=== PATIENT | female | born 1990 | race Caucasian/White ===

== ENCOUNTER 2020-12-15 10:21 | Emergency (ER) | payer MEDICARE, MEDICAID, SELFPAY ==
[2020-12-15 10:29] VITALS: BP 121/76; PULSE 82; RESP 16; TEMP 36.7; O2SAT 98; BMI 20.2
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
[2020-12-15 10:53] VITALS: RESP 16; TEMP 36.7; O2SAT 98
== END 2020-12-15 11:17 | disposition home or self-care (01) ==
LOC: ER 11:04
PROVIDERS: Emergency Provider Emergency Medicine
DX: Z13.9 Encounter for screening, unspecified (principal); R41.3 Other amnesia
CPT/HCPCS: 99281

== ENCOUNTER 2023-01-07 00:58 | Inpatient (IN) | payer MEDICARE, MEDICAID, SELFPAY ==
[2023-01-07 01:00] VITALS: BP 130/62; PULSE 83; RESP 16; TEMP 37; O2SAT 100; BMI 19.1
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
[2023-01-07 01:29] LABS: HCG Qualitative Urine. Negative (Negative)
[2023-01-07 01:30] LABS: Basophils # 0.1 10^3/uL (0.0-0.1); Basophils % 0.5 %; Eosinophils # 0.2 10^3/uL (0.0-0.8); Eosinophils % 1.7 %; Hematocrit 42.1 % (37.0-47.0); Lymphocytes # 2.8 10^3/uL (0.8-4.8); Lymphocytes % 25.7 %; Mean Corpuscular HGB Conc 33.3 g/dL (30.0-36.0); Mean Corpuscular Hemoglobin 31.2 pg (28.0-34.0); Mean Corpuscular Volume 93.8 fl (81-99); Mean Platelet Volume 9.7 fL (7.4-10.4); Monocytes # 0.7 10^3/uL (0.2-0.9); Monocytes % 6.3 %; Neutrophils # 7.15 10^3/uL (1.8-7.7); Neutrophils % 65.5 %; Nucleated Red Blood Cells % 0 %; Platelet Count 289 10^3/cmm (130-400); Red Blood Count 4.49 10^6/uL (4.1-5.3); White Blood Count 10.9 10^3/uL (4.0-10.0)
[2023-01-07 01:45] LABS: Add Urine Microscopic? YES; Bacteria Urine 1+ /hpf; Bilirubin Urine Neg (Negative); Blood Urine Neg (Negative); Glucose Urine UA Norm (Normal); Ketones Urine Negative (Negative); Leukocyte Esterase Urine Negative (Negative); Mucus Urine 3+ /hpf; Nitrate Urine Negative (Negative); Protein Urine Neg (Negative); Specific Gravity, Urine 1.025 (1.005-1.030); Urine Appearance Hazy (CLEAR); Urine Color Yellow (Yellow); Urobilinogen Urine Neg (Negative); pH Urine 5 (5-7)
[2023-01-07 01:46] LABS: Amphetamines Screen Urine Positive (Negative); Barbiturates Screen Urine Negative (Negative); Benzodiazepines Screen Urine Negative (Negative); Cocaine Screen Urine Negative (Negative); Opiate Screen Urine Negative (Negative); PCP Screen Urine Negative (Negative); THC Screen Urine Positive (Negative)
[2023-01-07 01:58] LABS: Alanine Aminotransferase 14 U/L (0-33); Albumin Level 4.1 g/dL (3.5-5.2); Alkaline Phosphatase 74 U/L (35-105); Anion Gap 11.8 (5-19); Aspartate Amino Transferase 11 U/L (0-32); Blood Urea Nitrogen 10 mg/dL (6-20); Calcium 9.7 mg/dL (8.5-10.5); Carbon Dioxide 29 mmol/L (22-29); Chloride 101 mmol/L (98-107); Globulin 2.5 g/dL (1.3-4.6); Glomerular Filtration Rate 95.8 mL/min (90-130); Glucose 83 mg/dL (65-115); Osmolality Calculated 284 mOsm/kg (285-295); Potassium 3.8 mmol/L (3.5-5.1); Sodium 138 mmol/L (136-145); Thyroid Stimulating Hormone 2.35 uIU/mL (0.27-4.20); Total Bilirubin 0.3 mg/dL (0.15-1.2); Total Protein 6.6 g/dL (6.6-8.7)
[2023-01-07 01:59] LABS: Acetaminophen < 5.0 ug/mL (10-30); Alcohol Level < 10 mg/dL (0-10); Salicylate < 0.3 mg/dL (3-10)
[2023-01-07 02:39] VITALS: BP 114/69; PULSE 92; RESP 18; TEMP 36.6; O2SAT 98
--- NOTE | 2023-01-07 03:57 | PC.NURSE ---
Pt arrived to [facility] @ approximately 0238 w/RN and security at side, pt is disheveled in appearance. Pt denies plan for SI, but states consistant depression. Pt's admission completed then pt shown to her room. Shortly thereafter the patient began being belligerent w/roommate. Pt moved to other campo d/t inability to get along with roommate.
[2023-01-07] MEDS: LORazepam 2 mg Tablet PO (04:37)
[2023-01-07] MEDS: diphenhydrAMINE 50 mg Capsule PO (04:37)
[2023-01-07] MEDS: nicotine 4 mg lozenge MUCOUS MEM (04:37)
[2023-01-07] MEDS: haloperidol 5 mg Tablet PO (04:37)
[2023-01-07 06:00] VITALS: RESP 14
--- NOTE | 2023-01-07 09:09 | PC.OT ---
HOLD OT EVALUATION TODAY PER NURSING SECONDARY TO AGITATION
[2023-01-07 14:00] VITALS: BP 104/63; PULSE 80; RESP 16; TEMP 36.4; O2SAT 98
[2023-01-07 14:22] LABS: HIV 1 & 2 Antibody Non-Reactive (Non-Reactiv); HIV 1 & 2 Antigen Non-Reactive (Non-Reactiv)
[2023-01-07 15:26] LABS: Rapid Plasma Reagin Syphilis Nonreactive (Nonreactive)
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
--- NOTE | 2023-01-07 23:44 | PC.NURSE ---
At around 2330, Pt got up from bed and asked staff to take a shower, after Pt was given her shower box, she then went to the bathroom and came back yelling where the fuck do I set this box. staff informed pt that she could set it on the counter / side of sink. Pt continued yelling What fucking counter, where am I suppose to set this Staff told Pt that she needed to stop yelling as to not wake other patients. Pt stomped back to the bathroom and slammed the door shut.
--- NOTE | 2023-01-08 06:13 | PC.NURSE ---
Addendum entered by Vicki Montero LPN 01/08/23 06:16: Pts respirations is 18. Original Note: Pt refused 0600 vitals.
--- NOTE | 2023-01-08 09:29 | PC.OT ---
OT TREATMENT ATTEMPTED AGAIN TODAY; PATIENT IS SLEEPING SOUNDLY AND UNABLE TO BE AWAKENED.
[2023-01-08] MEDS: buPROPion XL (24 HR) 150 mg Tablet PO (09:34)
[2023-01-08] MEDS: nicotine 21 mg Patch 1 PATCH TRANSDERMA (09:34)
[2023-01-08] MEDS: acetaminophen 325 mg Tablet 650 MG PO (09:35)
[2023-01-08] MEDS: magnesium hydroxide 30 mL UDC PO ×2 (11:59→20:01)
[2023-01-08 14:00] VITALS: RESP 16
[2023-01-08 14:05] LABS: RPR w(Moniotor) w/REFL Titer NON-REACTIVE (NON-REACTIVE)
--- NOTE | 2023-01-08 18:05 | P.NPUPN_ITS ---
Subjective NPU Subjective: Patient presented today reporting that she had a bad time with the geriatric social worker and that we had done all we can do to help her and wondering about discharging AGAINST MEDICAL ADVICE. We discussed her having for delayed gratification and the need for her to take a step back and look at the possible good that she come from her stay. She continues to be all over the place both emotionally and formalized. We discussed the possibility of a 96-hour hold. We agreed to meet again in the morning and discuss her discharge plan Mental Status Exam MSE Comments: This is a slender, underweight, white female, in hospital scrubs, with limited grooming and eye contact. No abnormal movements, except for psychomotor retardation intermixed with psychomotor agitation. Cooperative with exam in mild to moderate distress. Speech was decreased rate and volume. Mood described as flat; affect subdued and tearful. Thought process, organized. Thought content: patient denied any suicidal or homicidal ideation, there were no delusions reported or noted, patient denied any auditory or visual hallucinations. Attention, concentration, and memory appeared intact, but none were formally tested. Alert and oriented times three. Insight and judgment are fair. Impulse control is limited. Vitals/I&O/Wt Last Vital Signs Temp 97.9 F 01/08/23 20:25 Pulse 116 H 01/08/23 20:25 Resp 18 01/08/23 20:25 BP 110/77 01/08/23 20:25 Pulse Ox 98 01/08/23 20:25 O2 Del Method Room Air 01/08/23 20:25 Data NPU 01/07/23 01:25 01/07/23 01:25 A&P Assessment and plan (1) Suicidal ideation: (2) MDD (major depressive disorder): Qualifiers: Active/Remission status: currently active Major depression episode severity: moderate Major depression recurrence: recurrent Qualified Code(s): F33.1 - Major depressive disorder, recurrent, moderate (3) Borderline personality disorder: (4) Methamphetamine use disorder, severe: Plan This is a 32-year-old, white female, who presents with some history of psychiatric hospitalizations but limited follow-up treatment, with a willingness to start medication to help with depression. 1. Started Wellbutrin XL 150 mg p.o. every morning. 2. Check labs and get consult. 3. Encourage individual, group, and milieu therapy. 4. Continue q-15-minute checks for safety. 5. Recommend sober living treatment at the highest level of care to which the patient is willing to commit. Involuntary Hold Information 96 Hour Hold: 96 Hour Involuntary Admission: No Attestations NPU Medical Necessity Statement*: Inpatient hospitalization is medically necessary and the clinically appropriate intervention, at this time. We will monitor medications and make changes as indicated. Likely length of stay is 2-4 days. Coding Level of Care Code Acute Code for [employer] Fwd Diagnoses Suicidal ideation R45.851 MDD (major depressive disorder) F33.1 Active/Remission status: currently active Major depression episode severity: moderate Major depression recurrence: recurrent Borderline personality disorder F60.3 Methamphetamine use disorder, severe F15.20
[2023-01-08] MEDS: ibuprofen 600 mg Tablet PO (19:38)
[2023-01-08 20:25] VITALS: BP 110/77; PULSE 116; RESP 18; TEMP 36.6; O2SAT 98
[2023-01-09 06:00] VITALS: BP 105/69; PULSE 85; RESP 18; TEMP 36.6; O2SAT 97
[2023-01-09] MEDS: ibuprofen 600 mg Tablet PO (07:52)
[2023-01-09] MEDS: buPROPion XL (24 HR) 150 mg Tablet PO (07:52)
[2023-01-09] MEDS: nicotine 21 mg Patch 1 PATCH TRANSDERMA ×2 (07:52→15:24)
[2023-01-09] MEDS: diphenhydrAMINE 50 mg/mL SDV 1mL IM (09:08)
[2023-01-09] MEDS: haloperidol inj 5 mg/mL INJ 1 mL IM (09:08)
[2023-01-09] MEDS: LORazepam 2 mg/mL INJ 1 mL IM (09:08)
--- NOTE | 2023-01-09 09:36 | PC.NURSE ---
0908 Administered IM B52 for pt yelling and screaming unable to have a rationale conversation with nursing staff or security. 50mg IM Benadryl right deltoid 2mg IM Ativan left deltoid 5mg IM Haldol left deltoid No distress noted
--- NOTE | 2023-01-09 09:40 | PC.NURSE ---
0833 Pt at nurses station requesting a pan operator # for Tk Easley. Pt began to elevate her voice at staff, staff wasn't fast enough in writing down the phone #. Staff instructed pt to dial the social workers ext, pt reached through the glass and grabbed a metal pen and stormed off down the campo screaming and yelling Cunt's . This nurse walked down to the dayroom and before I could speak, the patient threw the pen across the room and yelled there's your pen, now go pick it up like a dog . Pt continues to yell and scream, this nurse didn't even speak, just walked back down the campo.
--- NOTE | 2023-01-09 09:41 | PC.NURSE ---
Reviewed 96hr rights with patient in the accompany of [facility] [employer] Operating Engineer Karl, @1934. No questions were verbalized at this time by patient. Copy of 96hr patient rights was left at bedside with the patient.
--- NOTE | 2023-01-09 11:45 | PC.NURSE ---
pt came to window yelling that she wanted to leave, explain to patient that when Dr. rCews made his round she could speak to him about being discharge. pt was told by another staff member that she believed she was on a 96 hour hold and she would have to speak with the Doctor. pt continued to yell that she was voluntary and that she wanted to sign her self out and she wanted to see the paperwork that stated she was on a hold. I explained to patient that she indeed is on a voluntary stay and that the other staff member was incorrect that the only paperwork we had was her consent paperwork for treatment. pt started hitting the windows at the nurses station repeatedly an yelling that she wanted to leave and wanted someone to calm her down since I was the reason for her being upset, that I kept changing my story and that staff was making her mad by lying to her. I attempted to de escalate patient by asking patient what i could do to help her, pt stated her russian language instructor couldn't call her because she didn't have a phone and didn't have a home, I let patient know that our case management would be able to help her with that. pt continued to hit the window and yelling she wanted to leave. Angela Sheth spoke with LISETH Maradiaga to come over and speak with patient. Liseth Maradiaga walked over to [facility] nurses station to attempted to speak with patient pt turned to walk to phone and beat phone receive against phone and wall, at time supervisor instrument mechanics came onto unit an started to walk down the hallway towards nurses station. supervisor instrument mechanics called security then came to nurses station to speak with patient in attempt to de escalate situation. pt stated that no one was trying to calm her down an that it was our fault she was mad and angry, why wouldn't anyone talk to her an try to calm her down ,noone would do anything for her. security arrived doctor Mars notified of pt situation. pt informed by housekeeper child care that she will be placed on a 96 hour hold. at that time pt started yelling that it was our plan to make her mad so she would have to stay here and that it was staff fault and we were out to get since she called me a cow. pt escorted to her room by security and nurses staff. pt consented to IM administration of Benadryl 50mg, Haldol 5mg and lorazepam 2mg in bilateral deltoids.
--- NOTE | 2023-01-09 13:03 | P.NPUPN_ITS ---
Subjective NPU Subjective: Patient presents today difficult to arouse from medications this morning. We discussed the fact her losing her temper and breaking the phone was not an indication of her being safe for discharge. She was not having significant engagement secondary to lethargy. Mental Status Exam MSE Comments: This is a slender, underweight, white female, in hospital scrubs, with limited grooming and little to no eye contact. No abnormal movements, except for psychomotor retardation as she was lying in bed with limited arousability. She was minimally cooperative with exam in no acute distress. Speech was decreased rate and volume. Mood described not described. Her affect was subdued. Thought process: nonlinear, Thought content: patient denied any suicidal or homicidal ideation, there were no delusions reported or noted, she is not attending to internal stimuli. Attention, concentration, and memory were impaired secondary to lethargy, but none were formally tested. Alert and oriented to person. Insight and judgment are poor. Impulse control is limited. Vitals/I&O/Wt Last Vital Signs Temp 97.9 F 01/09/23 06:00 Pulse 85 01/09/23 06:00 Resp 18 01/09/23 06:00 BP 105/69 01/09/23 06:00 Pulse Ox 97 01/09/23 06:00 O2 Del Method Room Air 01/09/23 06:00 Data NPU 01/07/23 01:25 01/07/23 01:25 A&P Assessment and plan (1) Suicidal ideation: (2) MDD (major depressive disorder): Qualifiers: Active/Remission status: currently active Major depression episode severity: moderate Major depression recurrence: recurrent Qualified Code(s): F33.1 - Major depressive disorder, recurrent, moderate (3) Borderline personality disorder: (4) Methamphetamine use disorder, severe: Plan This is a 32-year-old, white female, who presents with some history of psychia tric hospitalizations but limited follow-up treatment, with a willingness to start medication to help with depression. 1. Started Wellbutrin XL 150 mg p.o. every morning. 2. Check labs and get consult. 3. Encourage individual, group, and milieu therapy. 4. Continue q-15-minute checks for safety. 5. Recommend sober living treatment at the highest level of care to which the patient is willing to commit. 6. 96 hour hold paperwork submitted Involuntary Hold Information 96 Hour Hold: 96 Hour Involuntary Admission: No Attestations NPU Medical Necessity Statement*: Inpatient hospitalization is medically necessary and the clinically appropriate intervention, at this time. We will monitor medications and make changes as indicated. Likely length of stay is 2-4 days. Coding Level of Care Code Acute Code for [facility] Fwd Diagnoses Suicidal ideation R45.851 MDD (major depressive disorder) F33.1 Active/Remission status: currently active Major depression episode severity: moderate Major depression recurrence: recurrent Borderline personality disorder F60.3 Methamphetamine use disorder, severe F15.20
[2023-01-09 14:00] VITALS: RESP 16
[2023-01-09 20:42] VITALS: RESP 16
[2023-01-10 06:00] VITALS: RESP 16
--- NOTE | 2023-01-10 06:05 | PC.NURSE ---
Attempted to wake pt up for vitals, Pt did not wake up. Pts respirations are 16.
[2023-01-10] MEDS: ibuprofen 600 mg Tablet PO (07:40)
[2023-01-10] MEDS: buPROPion XL (24 HR) 150 mg Tablet PO (08:07)
[2023-01-10] MEDS: nicotine 21 mg Patch 1 PATCH TRANSDERMA (08:08)
[2023-01-10] MEDS: haloperidol inj 5 mg/mL INJ 1 mL IM (08:13)
[2023-01-10] MEDS: diphenhydrAMINE 50 mg/mL SDV 1mL IM (08:13)
[2023-01-10] MEDS: LORazepam 2 mg/mL INJ 1 mL IM (08:13)
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
[2023-01-10 14:00] VITALS: BP 115/78; PULSE 93; RESP 16; O2SAT 98
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
[2023-01-10 19:50] VITALS: BP 102/67; PULSE 98; RESP 16; TEMP 36.8; O2SAT 98
[2023-01-11 06:00] VITALS: RESP 16
[2023-01-11] MEDS: ibuprofen 600 mg Tablet PO (06:50)
[2023-01-11] MEDS: LORazepam 2 mg/mL INJ 1 mL IM (07:47)
[2023-01-11] MEDS: diphenhydrAMINE 50 mg/mL SDV 1mL IM (07:47)
[2023-01-11] MEDS: haloperidol inj 5 mg/mL INJ 1 mL IM (07:47)
--- NOTE | 2023-01-11 07:47 | PC.NURSE ---
PRN BENADRYL/HALDOL/ATIVAN---CODE 10 BENADRYL 50 MG GIVEN IM IN LEFT DELTOID, ATIVAN 2 MG GIVEN IM WITH HALDOL 5 MG GIVEN IM PER PATIENT BEHAVIOR OF INCREASED AGITATION/AGGRESSION/ANXIETY. PATIENT CAME TO THE DESK, ASKING STAFF FOR NICOTINE PATCH, STAFF OFFERED TO GO GET IT, BEFORE STAFF COULD LEAVE TO RETRIEVE PATCH PATIENT BEGAN QUESTIONING STAFF ABOUT HER 96 HOUR HOLD, AND HER CONCERN ABOUT HER ANIMALS LEFT AT HER HOME. THIS STAFF OFFERED TO CALL TO CHECK ON HER ANIMALS, STAFF EDUCATED PATIENT THAT HER BEHAVIOR NEEDED TO BE STABLE BEFORE SHE WOULD BE ALLOWED TO BE DISCHARGED, PATIENT BECAME IRATE AT THIS POINT, YELLING AT THIS STAFF MEMBER THAT I WAS THREATENING TO KEEP HER HERE FOREVER THIS STAFF ATTEMPTS TO VERBALLY DEESCALATE PATIENT, NO SUCCESS. STAFF ASKED PATIENT TO STOP YELLING, PATIENT SCREAMING AT STAFF I'M NOT YELLING! STAFF ATTEMPTED TO CALL SECURITY, THEN PATIENT REACHED INTO DESK KNOCKED OVER THE COMPUTER, ATTEMPTED TO GRAB AT OTHER THINGS IN THE NURSES STATION. THIS STAFF MEMBER GRABBED PATIENT WRIST IN ATTEMPT TO KEEP HER FROM GRABBING OTHER ITEMS AT THE DESK, CODE 10 ALSO CALLED AT THIS TIME, SEVERAL ER STAFF, 2 SECURITY AND HEALTH INSURANCE ASSESSOR RESPONDED TO CODE CALLED. PATIENT TOOK INJECTIONS WILLINGLY, LAUGHING SHE RECEIVED THE INJECTIONS SAYING MAYBE I'LL START USING MY METH LIKE THIS SINCE I KEEP GETTING STUCK IN THE ARMS STAFF WILL CONT TO MONITOR
--- NOTE | 2023-01-11 08:07 | PC.NURSE ---
LIMITED ASSESSMENT R/T BEHAVIOR
[2023-01-11] MEDS: buPROPion XL (24 HR) 150 mg Tablet PO (12:27)
[2023-01-11] MEDS: hyDROXYzine 25 mg Capsule 50 MG PO (12:27)
--- NOTE | 2023-01-11 12:33 | PC.NURSE ---
PRN VISTARIL 50 MG GIVEN PO PER PT REQUEST OF MORE MEDS PATIENT HAS BEEN PREVIOUSLY ASLEEP IN BED IN ROOM, NO OUTWARD S/S OF ANXIETY NOTED BUT PATIENT HAS SHOWN PAST BEHAVIORS OF INCREASED AGITATION/AGGRESSION EASILY IF HER REQUESTS AREN'T ANSWERED. SCHEDULED WELLBUTRIN ALSO GIVEN AT THIS TIME THAT PATIENT PREVIOUSLY REFUSED FROM THIS MORNING
[2023-01-11 14:00] VITALS: BP 100/64; PULSE 78; RESP 16; TEMP 36.6; O2SAT 97
--- NOTE | 2023-01-11 15:29 | P.NPUPN_ITS ---
Subjective NPU Subjective: The patient is a 32-year-old white female with a history of borderline personality disorder, major depressive disorder and methamphetamine use admitted with suicidal ideation with increased agitation. The patient appeared to have limited interactions. She had awakened to receive food and then promptly went back to sleep. She continued to provide no clear information regarding why she had been admitted to the hospital. She had received Haldol for acute aggression this morning intramuscularly as she had refused oral medications. Mental Status Exam MSE Comments: This is a slender, underweight, white female, in hospital scrubs, with limited grooming and eye contact. No abnormal movements, except for psychomotor retardation as she was lying in bed and difficult to arouse. She was minimally cooperative with exam in no acute distress. Speech was nonproductive. She did not describe her mood today. Her affect was subdued and mood odd. Thought process: nonlinear, Thought content: patient denied any suicidal or homicidal ideation, there were no delusions reported or noted, patient denied any auditory or visual hallucinations. She remained paranoid and agitated when awakened. Att ention, concentration, and memory appeared intact, but none were formally tested. Alert and oriented times three. Insight and judgment are poor. Impulse control is impaired. Vitals/I&O/Wt Last Vital Signs Temp 97.8 F 01/11/23 14:00 Pulse 78 01/11/23 14:00 Resp 16 01/11/23 14:00 BP 100/64 01/11/23 14:00 Pulse Ox 97 01/11/23 14:00 O2 Del Method Room Air 01/09/23 06:00 Data NPU 01/07/23 01:25 01/07/23 01:25 A&P Assessment and plan (1) Suicidal ideation: (2) MDD (major depressive disorder): Qualifiers: Active/Remission status: currently active Major depression episode severity: moderate Major depression recurrence: recurrent Qualified Code(s): F33.1 - Major depressive disorder, recurrent, moderate (3) Borderline personality disorder: (4) Methamphetamine use disorder, severe: Plan This is a 32-year-old, white female, who presents with some history of psychiatric hospitalizations but limited follow-up treatment, with a willingness to start medication to help with depression. 1. Continue Wellbutrin XL 150 mg p.o. every morning. 2. Check labs and get consult. 3. Encourage individual, group, and milieu therapy. 4. Continue q-15-minute checks for safety. 5. Recommend sober living treatment at the highest level of care to which the patient is willing to commit. 6. Patient to remain on 96 hour hold. Involuntary Hold Information 96 Hour Hold: 96 Hour Involuntary Admission: No Attestations NPU Medical Necessity Statement*: Inpatient hospitalization is medically necessary and the clinically appropriate intervention, at this time. We will monitor medications and make changes as indicated. Her likely length of stay is 2-4 days. Coding Level of Care Code Acute Code for g Fwd Diagnoses Suicidal ideation R45.851 MDD (major depressive disorder) F33.1 Active/Remission status: currently active Major depression episode severity: moderate Major depression recurrence: recurrent Borderline personality disorder F60.3 Methamphetamine use disorder, severe F15.20
[2023-01-11] MEDS: haloperidol 5 mg Tablet PO (18:32)
[2023-01-11] MEDS: diphenhydrAMINE 50 mg Capsule PO (18:32)
[2023-01-11] MEDS: magnesium hydroxide 30 mL UDC PO (18:35)
--- NOTE | 2023-01-11 18:37 | PC.NURSE ---
Patient tearful and trembling, requesting medication. Administered 5mg Haldol, 50mg Benadryl to patient. Ativan 2mg still pending at pharmacy. Mode: by mouth. When asked if patient wanted to talk about it, patient started to get agitated.
--- NOTE | 2023-01-11 18:38 | PC.NURSE ---
patient unsure of last BM. Administered Milk of Mag to patient. will continue to monitor
[2023-01-11] MEDS: LORazepam 2 mg Tablet PO (18:50)
[2023-01-11 21:31] VITALS: RESP 17
[2023-01-12] MEDS: buPROPion XL (24 HR) 150 mg Tablet PO (08:43)
--- NOTE | 2023-01-12 08:49 | PC.NURSE ---
pt up at desk requesting morning medication, and a inkpen when asked if she would like something for anxiety pt stated yes. when administering her wellbutrin also gave pt zyprexia, informed pt of anxiety med pt picked out med and threw it at staff, stating i told you i didnt want that medicaition attempts to descalte pt by going over what was said between staff and patient on anxiety medication and pt agreeing to take it pt started yelling sayin i told you I didnt want that medication pt then called staff lisa mariet walked away came back to nurses station yelling for ink pen you fucking bitch, when told she was unable to recieve ink pen pt threw creamer, sugars, creamers and threw coffee at staff members. pt then walked away to dayroom and sat at table.
[2023-01-12] MEDS: diphenhydrAMINE 50 mg Capsule PO (09:13)
[2023-01-12] MEDS: haloperidol 5 mg Tablet PO (09:13)
[2023-01-12] MEDS: LORazepam 2 mg Tablet PO (09:13)
--- NOTE | 2023-01-12 10:02 | PC.NURSE ---
One Hour Face to Face Patient was placed in a hold at 0924 and was in seclusion at 0927. Face to face completed at 1000 by Nicolasa Peacock, RN Nurse [employer] Washer. Events leading up to initiation: Verbalizing threat to self or others, demonstrating destructive behavior, combative/striking out at staff or others Evaluation of patients immediate situation: Alert and oriented, no signs of physical distress Patient reaction since intervention applied: Behaviors/threats have lessened, but still present. Recent labs reviewed: No Review of medications: Yes (by Dr. Bauer) Patient's current medical/behavior condition: No new concerns since last ROS Need for restraint or seclusion is: Continued Attending notified: Yes
[2023-01-12] MEDS: acetaminophen 325 mg Tablet 650 MG PO (12:45)
[2023-01-12] MEDS: nicotine 21 mg Patch 1 PATCH TRANSDERMA (12:45)
--- NOTE | 2023-01-12 13:51 | PC.NURSE ---
PT WAS BECOMING ESCALATED AND YELLING AT OTHER NURSE MEGAN CAPELLAN. PT WAS UNABLE TO BE REDIRECTED. PT GRABBED THE SNACK BOX AND THREW IT ACROSS THE NURSES STATION. THIS NURSE WENT TO ASSIST IN THE SITUATION. THIS NURSE STATED YOU CANNOT THROW ANYTHING ACROSS THE NURSES STATION. PT CONTINUED TO YELL AT OTHER NURSE. PT BEGAN SCREAMING CAN YOU GIVE ME A FUCKING PEN THEN. GIVE ME THE FUCKING PEN. CAN I FUCKING HAVE A PEN. THIS NURSE INFORMED THE PT THAT SHE WILL NOT CURRENTLY BE GIVEN A PEN TO WHICH THE PT RESPONDED WITH STICKING HER CUP OF COFFEE THROUGH THE NURSES STATION WINDOW AND THROWING ON THIS NURSE. SECURITY HAD BEEN CALLED AND PREMIX OPERATOR CONCENTRATE WAS ALREADY ON HER WAY DOWN. PHYSICIAN WAS INFORMED AND STATED THAT HE WANTED A B52 TO BE GIVE. MEDICATION WAS OFFERED ORALLY PT WAS WILLING TO TAKE MEDICATION ORALLY. PT SWALLOWED BENADRYL AND ATIVAN HOWEVER, PT DID NOT FULLY SWALLOW THE HALDOL. PT ASKED IF SHE COULD MAKE A PHONE CALL BEFORE THE MEDICATION KICKED IN AND WAS TOLD THAT SHE HAS TO SWALLOW HER MEDICATION. PT RESPONDED BY TAKING HALDOL OUT OF HER MOUTH AND HOLDING IT REPEATEDLY ASKING IF SHE CAN MAKE A PHONE CALL. PREMIX OPERATOR CONCENTRATE ATTEMPTED TO EDUCATE THE PT TO IF SHE TAKES HER MEDICATION AND CALMS DOWN THAT THE NURSING STAFF WILL MAKE THAT DECISION. PT STATED THEN LET ME TALK TO THE NURSE. THIS NURSE STATED THAT I AM THE NURSE AND PT RESPONDED WITH WELL WHY ARENT YOU SAYING ANYTHING THEN. THIS NURSE EDUCATED PT THAT I WILL NOT TALK OVER HER WHEN SHE IS HAVING A CONVERSATION WITH SOMEONE ELSE. THIS NURSE EDUCATED PT STATING IF SHE TOOK HER MEDICATION AND WAS CALM FOR 10 MINUTES I WOULD BE MORE THAN WILLING TO LET HER HAVE THE PRIVILEGE OF HAVING HER PHONE CALL. PT THE STATED I BET I CAN SNORT THIS. PT WAS ASKED NOT TO DO THAT AND THIS NURSE WENT TO TAKE THE MEDICATION FROMT HE PT BUT BEFORE THAT COULD HAPPEN PT HAD ALREADY SHOVED THE 5 MG HALDOL UP HER NOSE AND STATED THAT WAS GOOD WHAT WAS THAT THE HALDOL? TO WHICH THIS NURSE RESPONDED WITH IM NOT GOING TO ANSWER THAT. PHYSCIAN WAS NOTIFIED AND ORDERED TO GIVE THE HALDOL SHOT PT WILLINGLY TOOK.
[2023-01-12 14:00] VITALS: BP 116/74; PULSE 85; RESP 16; TEMP 36.4; O2SAT 98
[2023-01-12] MEDS: diphenhydrAMINE 50 mg/mL SDV 1mL IM (18:10)
[2023-01-12] MEDS: LORazepam 2 mg/mL INJ 1 mL IM (18:11)
[2023-01-12] MEDS: haloperidol inj 5 mg/mL INJ 1 mL IM (18:12)
--- NOTE | 2023-01-12 18:25 | PC.NURSE ---
prn ATIVAN/HALDOL/BENADRYL--CODE 10 PT UP TO DESK, YELLING/CURSING, VERBALLY ASSAULTIVE WITH NURSING STAFF, CALLING NURSES BITCHES STUPID FUCKING BITCHES ASKING FOR MEDICATIONS TO CALM HER DOWN. WHEN STAFF OFFERED PRN MEDICINE PATIENT BECOMES IRATE STATING THAT THAT'S ALL WE KNOW HOW TO DO IS GIVE MEDICATIONS CONSERVATION EDUCATOR ATTEMPTING TO DE-ESCALATE PATIENT & REDIRECT BEHAVIOR, UNSUCCESSFUL. SECURITY CALLED. PATIENT CONT TO YELL & STAFF, SAYING YOU STUPID FUCKING BITCH THEN STARTED KICKING GLASS WITH HER FOOT SEVERAL TIMES BY NURSES STATION. CODE [address] AT THIS TIME[address] ALCAZAR ON UNIT, DID NOT SPEAK WITH PATIENT BUT TOLD NURSING STAFF SHE COULD GET PRN INJECTIONS. PT TOOK INJECTIONS IN ARMS, BENADRYL 50 MG GIVEN IM IN LEFT DELTOID, ATIVAN 2 MG GIVEN WITH HALDOL 5 MG IM IN RIGHT DELTOID.
--- NOTE | 2023-01-12 18:34 | W.PM.NPUPNS ---
Subjective NPU Subjective: The patient is a 32-year-old white female with a history of borderline personality disorder, major depressive disorder and methamphetamine use admitted with suicidal ideation with increased agitation. The patient had required seclusion today and required 2 different prn medications as needed intramuscular Haldol 5mg given for agitation. She had continued to appear labile while making threats to staff. She had snorted intranasal Haldol 5 mg when given the opportunity to take it orally today. She had continued to spend time either aggressive and yelling at the staff engaging in attempts to destroy property or lying in bed. Mental Status Exam MSE Comments: This is a slender, underweight, white female, in hospital scrubs, with limited grooming and eye contact. No abnormal movements, except for extreme psychomotor agitation follwed by psychomotor retardation. She was minimally cooperative with exam in no acute distress. Speech was loud and productive with elevated rate. She described her mood as angry. Her affect was intense and agitated. Thought process: nonlinear, Thought content: patient denied any suicidal or homicidal ideation, there were no delusions reported or noted, patient denied any auditory or visual hallucinations. She remained paranoid and agitated. Attention, concentration, and memory appeared intact, but none were formally tested. Alert and oriented times three. Insight and judgment are poor. Impulse control is impaired. Vitals/I&O/Wt Last Vital Signs Temp 97.6 F 01/12/23 14:00 Pulse 85 01/12/23 14:00 Resp 16 01/12/23 14:00 BP 116/74 01/12/23 14:00 Pulse Ox 98 01/12/23 14:00 O2 Del Method Room Air 01/09/23 06:00 Data NPU 01/07/23 01:25 01/07/23 01:25 A&P Assessment and plan (1) Psychotic disorder: (2) Suicidal ideation: (3) MDD (major depressive disorder): Qualifiers: Active/Remission status: currently active Major depression episode severity: moderate Major depression recurrence: recurrent Qualified Code(s): F33.1 - Major depressive disorder, recurrent, moderate (4) Borderline personality disorder: (5) Methamphetamine use disorder, severe: Plan This is a 32-year-old, white female, who presents with some history of psychiatric hospitalizations but limited follow-up treatment, with a willingness to start medication to help with depression. 1. Discontinue Wellbutrin XL. Haldol IM/po 5mg prn for agitation 2. Check labs and get consult. 3. Encourage individual, group, and milieu therapy. 4. Continue q-15-minute checks for safety. 5. Recommend sober living treatment at the highest level of care to which the patient is willing to commit. 6. Patient to remain on 96 hour hold. Involuntary Hold Information 96 Hour Hold: 96 Hour Involuntary Admission: No Attestations NPU Medical Necessity Statement*: Inpatient hospitalization is medically necessary and the clinically appropriate intervention, at this time. We will monitor medications and make changes as indicated. Her likely length of stay is 3-6 days. Coding Level of Care Code Acute Code for [facility] Fwd Diagnoses Psychotic disorder F29 Suicidal ideation R45.851 MDD (major depressive disorder) F33.1 Active/Remission status: currently active Major depression episode severity: moderate Major depression recurrence: recurrent Borderline personality disorder F60.3 Methamphetamine use disorder, severe F15.20
[2023-01-13] MEDS: docusate sodium 100 mg Capsule PO ×2 (08:20→10:35)
--- NOTE | 2023-01-13 10:09 | PC.NURSE ---
Patient has been reading a book and asked if the unit was able to go outside in a polite manner. Did request the yarding engineer and talked to him for some time. After he left she went to her room and began sobbing. This RN offered to talk to her, but she stated she didn't want to at this time. She was then told she could come to this RN at any time if she needed someone to talk to. Patient said okay and thanked this RN.
[2023-01-13] MEDS: haloperidol 5 mg Tablet PO ×2 (10:28→17:10)
[2023-01-13] MEDS: LORazepam 2 mg Tablet PO ×2 (10:28→17:10)
[2023-01-13] MEDS: diphenhydrAMINE 50 mg Capsule PO ×2 (10:28→17:10)
--- NOTE | 2023-01-13 11:45 | PC.NURSE ---
Patient extremely emotional this morning. She asked this RN to call someone for her to make sure her cats were okay. This RN did as she requested and was told her cats were being fed and watered. Upon walking down the hallway this RN could see the patient sitting in her room, sobbing. This RN approached her room and asked what was wrong. She stated she was looking at the paperwork the social workers had left for her to look at and that the rent was too expensive. She said her dad passed and she had to help with hospice. Patient also said she helped raise her little brother and that he had 5 years ago. She stated that her dad and brother were the only 2 people she had to live for. Patient says she has plastic around the windows in her house because people keep breaking in . She said people often offer to help her with her water and to help fix other things in the house but that they either end up not fulfilling their promises or steal from her. Patient stated, but it doesn't matter. Because you have to take help when someone says that's what they're going to do when you have nothing. Patient tearful throughout talk and was assured staff was here to help her although she stated multiple times she didn't want to be here because she didn't think we could help her. At one time patient stated, I just want to .
--- NOTE | 2023-01-13 13:43 | PC.NURSE ---
1028- given prn haldol 5mg, benadryl 50mg, and ativan 2mg PO. Patient requested medication because she was becoming increasingly frustrated, yelling sporadically at staff and other patients. She and another patient had to be in the dayroom because they would not stop yelling obscenities at each other during breakfast. It was unclear who initiated the argument, but patient tolerated medication well and became calm shortly thereafter.
[2023-01-13 14:00] VITALS: BP 110/72; PULSE 100; RESP 16; TEMP 36.8; O2SAT 98
[2023-01-13] MEDS: docusate sodium 100 mg Capsule 200 MG PO (17:10)
--- NOTE | 2023-01-13 17:13 | W.PM.NPUPNS ---
Subjective NPU Subjective: The patient is a 32-year-old white female with a history of borderline personality disorder, major depressive disorder and methamphetamine use admitted with suicidal ideation with increased agitation. Patient had reported that she wished to have help. She did not require any seclusion or restraint. She continued to be at times verbally abusive. She had reported that she was hoping to leave soon but remained uncertain about her home situation. Patient had acknowledged the use of illicit drugs and stated that she had problems with managing her anger. Mental Status Exam MSE Comments: This is a slender, underweight, white female, in hospital scrubs, with limited grooming and eye contact. No abnormal movements, except for extreme psychomotor agitation follwed by psychomotor retardation. She was more cooperative with exam in no acute distress. Speech was normal in volume and productive with elevated rate. She described her mood as okay. Her affect was more subdued today. Thought process: linear. Thought content: patient denied any suicidal or homicidal ideation, there were no delusions reported or noted, patient denied any auditory or visual hallucinations. She remained paranoid and agitated. Attention, concentration, and memory appeared intact, but none were formally tested. Alert and oriented times three. Insight and judgment are poor. Impulse control is impaired. Vitals/I&O/Wt Last Vital Signs Temp 98.3 F 01/13/23 14:00 Pulse 100 01/13/23 14:00 Resp 16 01/13/23 14:00 BP 110/72 01/13/23 14:00 Pulse Ox 98 01/13/23 14:00 O2 Del Method Room Air 01/13/23 14:00 Data NPU 01/07/23 01:25 01/07/23 01:25 A&P Assessment and plan (1) Psychotic disorder: (2) Suicidal ideation: (3) MDD (major depressive disorder): Qualifiers: Active/Remission status: currently active Major depression episode severity: moderate Major depression recurrence: recurrent Qualified Code(s): F33.1 - Major depressive disorder, recurrent, moderate (4) Borderline personality disorder: (5) Methamphetamine use disorder, severe: Plan This is a 32-year-old, white female, who presents with some history of psychiatric hospitalizations but limited follow-up treatment, with a willingness to start medication to help with depression. 1. Discontinue Wellbutrin XL. Haldol IM/po 5mg prn for agitation 2. Check labs and get consult. 3. Encourage individual, group, and milieu therapy. 4. Continue q-15-minute checks for safety. 5. Recommend sober living treatment at the highest level of care to which the patient is willing to commit. 6. Patient to remain on 96 hour hold. Involuntary Hold Information 96 Hour Hold: 96 Hour Involuntary Admission: No Attestations NPU Medical Necessity Statement*: Inpatient hospitalization is medically necessary and the clinically appropriate intervention, at this time. We will monitor medications and make changes as indicated. Her likely length of stay is 3-6 days. Coding Level of Care Code Acute Code for [facility] Fwd Diagnoses Psychotic disorder F29 Suicidal ideation R45.851 MDD (major depressive disorder) F33.1 Active/Remission status: currently active Major depression episode severity: moderate Major depression recurrence: recurrent Borderline personality disorder F60.3 Methamphetamine use disorder, severe F15.20
[2023-01-13] MEDS: nicotine 21 mg Patch 1 PATCH TRANSDERMA (18:04)
--- NOTE | 2023-01-13 18:50 | PC.NURSE ---
Patient given ativan 2mg PO, benadryl 50mg po, and haldol 5mg PO for agitation. Patient stated she needed something to calm her nerves. This RN offered zyprexa, but patient angrily stated, I've told several fucking nurses that I'm not taking that, so can you please take that off of there or make a note so people will quit trying to give that fucking medicine to me. I don't know if y'all get a kickback or what? This RN offered alternatives as patient was visibly becoming more agitated, posturing. Patient agreed to taking ativan, benadryl, and haldol. Patient tolerated medication and is now relatively calm.
[2023-01-13 19:43] VITALS: BP 105/59; PULSE 102; RESP 16; TEMP 36.7; O2SAT 95
[2023-01-14 06:00] VITALS: BP 94/57; PULSE 78; RESP 14; O2SAT 96
[2023-01-14] MEDS: haloperidol 5 mg Tablet PO ×2 (08:42→16:44)
[2023-01-14] MEDS: diphenhydrAMINE 50 mg Capsule PO ×2 (08:42→16:44)
[2023-01-14] MEDS: LORazepam 2 mg Tablet PO ×2 (08:42→16:44)
[2023-01-14] MEDS: docusate sodium 100 mg Capsule 200 MG PO (08:44)
[2023-01-14] MEDS: ibuprofen 600 mg Tablet PO (08:51)
[2023-01-14 14:00] VITALS: BP 101/48; PULSE 108; RESP 16; TEMP 36.6; O2SAT 96
--- NOTE | 2023-01-14 18:19 | P.NPUPN_ITS ---
Subjective NPU Subjective: The patient is a 32-year-old white female with a history of borderline personality disorder, major depressive disorder and methamphetamine use admitted with suicidal ideation with increased agitation. She reported that she was ready to go home soon. She reported no suicidal thoughts and admitted that she needed help with methamphetamine use. She had stated feeling calmer after receiving the Haldol and was agreeable to oral intake. She had reported having frequent bouts of intense anger and stated that it often got her into trouble. She had reported having difficulties with intense relationships and stated that she often responded violently to perceived threats. Mental Status Exam MSE Comments: This is a slender, underweight, white female, in hospital scrubs, with limited grooming and eye contact. There is no evidence of any abnormal involuntary motor movements tics or tremors. She was more cooperative with exam in with moderate distress. Speech was normal in volume and rate. She described her mood as okay. Her affect remained labile and intense. Thought process: linear. Thought content: patient denied any suicidal or homicidal ideation, there were no delusions reported or noted, patient denied any auditory or visual hallucinations. There was no overt delusions appreciated. She had appeared distrustful of others and acknowledged having this issue. Her attention, concentration, and memory appeared intact, but none were formally tested. Alert and oriented times three. Insight was limited and judgment is poor. Impulse control is impaired. Vitals/I&O/Wt Last Vital Signs Temp 98 F 01/14/23 14:00 Pulse 108 H 01/14/23 14:00 Resp 16 01/14/23 14:00 BP 101/48 01/14/23 14:00 Pulse Ox 96 01/14/23 14:00 O2 Del Method Room Air 01/14/23 14:00 Data NPU 01/07/23 01:25 01/07/23 01:25 A&P Assessment and plan (1) Psychotic disorder: (2) Suicidal ideation: (3) MDD (major depressive disorder): Qualifiers: Active/Remission status: currently active Major depression episode severity: moderate Major depression recurrence: recurrent Qualified Code(s): F33.1 - Major depressive disorder, recurrent, moderate (4) Borderline personality disorder: (5) Methamphetamine use disorder, severe: Plan This is a 32-year-old, white female, who presents with some history of psychiatric hospitalizations but limited follow-up treatment, with a willingness to start medication to help with depression. 1. Haldol oral 2mg in am, 5mg at night. 2. Check labs and get consult. 3. Encourage individual, group, and milieu therapy. 4. Continue q-15-minute checks for safety. 5. Recommend sober living treatment at the highest level of care to which the patient is willing to commit. 6. Patient to remain on 96 hour hold. Involuntary Hold Information 96 Hour Hold: 96 Hour Involuntary Admission: No Attestations NPU Medical Necessity Statement*: Inpatient hospitalization is medically necessary and the clinically appropriate intervention, at this time. We will monitor medications and make changes as indicated. Her likely length of stay is 2-3 days. Coding Level of Care Code Acute Code for [facility] Fwd Diagnoses Psychotic disorder F29 Suicidal ideation R45.851 MDD (major depressive disorder) F33.1 Active/Remission status: currently active Major depression episode severity: moderate Major depression recurrence: recurrent Borderline personality disorder F60.3 Methamphetamine use disorder, severe F15.20
[2023-01-15] MEDS: diphenhydrAMINE 50 mg/mL SDV 1mL IM (07:20)
[2023-01-15] MEDS: LORazepam 2 mg/mL INJ 1 mL IM (07:20)
[2023-01-15] MEDS: haloperidol inj 5 mg/mL INJ 1 mL IM (07:21)
--- NOTE | 2023-01-15 08:04 | PC.NURSE ---
One Hour Face to Face Patient was placed in seclusion at 0710. Face to face completed at 8:00 by Nicolasa Peacock, RN Nurse Retail Security Professional. Events leading up to initiation: Verbalizing threat to self or others, demonstrating destructive behavior, combative/striking out at staff or others Evaluation of patients immediate situation: Alert and oriented, no signs of physical distress Patient reaction since intervention applied: Behaviors/threats have lessened, but still present. Recent labs reviewed: No Review of medications: Yes (by Dr. Crews) Patient's current medical/behavior condition: No new concerns since last ROS Need for restraint or seclusion is: Continued Attending notified: Yes
[2023-01-15] MEDS: docusate sodium 100 mg Capsule 200 MG PO (13:47)
[2023-01-15] MEDS: nicotine 21 mg Patch 1 PATCH TRANSDERMA (13:48)
[2023-01-15] MEDS: ibuprofen 600 mg Tablet PO (13:51)
[2023-01-15 14:00] VITALS: BP 117/77; PULSE 92; RESP 16; TEMP 36.8; O2SAT 91
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
[2023-01-15] MEDS: acetaminophen 325 mg Tablet 650 MG PO (18:46)
[2023-01-15] MEDS: diphenhydrAMINE 50 mg Capsule PO (18:47)
[2023-01-15] MEDS: LORazepam 2 mg Tablet PO (18:47)
[2023-01-15] MEDS: haloperidol 5 mg Tablet PO (18:47)
--- NOTE | 2023-01-15 18:55 | PC.NURSE ---
Pt just administered oral b52 for anxiety, tolerated well.
--- NOTE | 2023-01-15 19:12 | PC.NURSE ---
Pt's behaviors have improved this afternoon and evening. Nursing staff spoke with pt about her good behaviors, and encouraged pt to keep up the good work.
--- NOTE | 2023-01-16 07:18 | PC.NURSE ---
Asked the patient multiple times to do vitals. Patient was heavy sleeping. Respiration Rate 16.
[2023-01-16] MEDS: haloperidol 1 mg Tablet 2 MG PO (09:09)
[2023-01-16 09:11] VITALS: BP 117/77; PULSE 92; RESP 16; TEMP 36.8; O2SAT 91
[2023-01-16] MEDS: nicotine 21 mg Patch 1 PATCH TRANSDERMA (09:16)
[2023-01-16] MEDS: ibuprofen 600 mg Tablet PO (09:21)
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
--- NOTE | 2023-01-16 09:51 | PC.NURSE ---
patient was allowed to go outside to smoke while waiting on a medicaid ride per Nicolasa Nurse Roll Hauler. Patient's friend Karie morales and agreed to give her a ride home. Patient was sitting outside and at 1100, patient was not there and her belongings were gone.
--- NOTE | 2023-01-16 11:20 | DCPLANNER ---
IMM was done on 01/16/23 @ 1015am.
== END 2023-01-16 11:10 | disposition home or self-care (01) | DRG 885 ==
LOC: ER 01:38 → NP 02:23
PROVIDERS: Admitting Provider Psychiatry & Neurology Psychiatry; Emergency Provider Nurse Practitioner Family; Visit Provider Psychiatry & Neurology Psychiatry
DX: F33.1 Major depressive disorder, recurrent, moderate (principal); R45.851 Suicidal ideations; F15.20 Other stimulant dependence, uncomplicated; F60.3 Borderline personality disorder; F12.90 Cannabis use, unspecified, uncomplicated; F10.91 Alcohol use, unspecified, in remission; F17.210 Nicotine dependence, cigarettes, uncomplicated; A53.9 Syphilis, unspecified; F63.9 Impulse disorder, unspecified
CPT/HCPCS: 36415; 80053; 80306; 80307; 81001; 81025; 84443; 85025; 86592; 87491; 87591; 87806; 96372; 97150; 97165; 99238; 99285; J1200; J1630; J2060; Q0163

== ENCOUNTER 2023-01-17 02:57 | Emergency (ER) | payer MEDICARE, MEDICAID, SELFPAY ==
[2023-01-17 02:59] VITALS: BP 128/92; PULSE 98; RESP 18; O2SAT 99
[2023-01-17 03:07] VITALS: BP 128/92; PULSE 94; RESP 16; O2SAT 99
[2023-01-17] MEDS: LORazepam 2 mg/mL INJ 1 mL IVP (03:29)
[2023-01-17 04:16] VITALS: BP 103/60; PULSE 90; O2SAT 98
--- NOTE | 2023-01-17 04:23 | W.ED.GENADLT ---
HPI - General Adult General: Chief complaint: General Medical Stated complaint: NECK PAIN Source: patient Limitations: no limitations History of Present Illness: 32-year-old female presenting with panic symptoms of shortness of breath, distress, muscle tightness, particularly in her neck, and feeling of impending doom. This happened after ingestion of Haldol, marijuana, and possibly other substances earlier in the morning she had a recent admission to our neuropsychiatric unit. She had some problems with anger outbursts and impulse control there. She does not show any of these problems this morning. Onset (ago): hour(s) Radiation: non-radiation Quality: other Pain Consistency: other Relieving factors: none Associated symptoms: Reports diaphoresis, headache(s), nausea, palpitations, short of breath and vomiting; Deny chest pain, confusion, cough, dyspnea, fevers/chills or rash Review of Systems Const: Reports: diaphoresis Card: Reports: palpitations; Denies: chest pain Resp: Denies: dyspnea GI: Reports: nausea and vomiting Skin/Breast: Denies: rash Neuro: Reports: headache(s); Denies: confusion PFSH ED PFSH: Medical History (Updated 01/17/23 @ 04:28 by Jameel Bunch DO) Psychotic disorder Social History Smoking and tobacco status: current every day smoker Physical Exam Const: GENERAL APPEARANCE: cooperative, anxious, disheveled and lethargic (mildly) ORIENTATION/CONSCIOUSNESS: Yes lethargic (mildly) HENMT: COMMON NORMALS: normocephalic, atraumatic and Normal external nose present HEAD & SCALP: normocephalic and atraumatic FACE & SINUS: normal facial exam NOSE: Normal external nose present Eye: COMMON NORMALS: Equal, round and reactive pupils present and EOMs intact bilaterally PUPIL: Yes Equal, round and reactive pupils present Neck/C-Spine: GENERAL: Yes trachea midline Chest: CHEST: Yes Symmetrical chest wall rise Resp: COMMON NORMALS: normal respiratory effort, No use of accessory muscles and clear to auscultation bilaterally AUSCULTATION: clear to auscultation bilaterally Cardio: COMMON NORMALS: regular rate and regular rhythm RATE: regular rate RHYTHM: regular rhythm GI: COMMON NORMALS: Normal to inspection, nondistended, normoactive bowel sounds present Extremity: COMMON NORMALS: no pedal edema Neuro: [place] COMA SCALE: document GCS findings [place] coma scale eye opening: Spontaneous [place] coma scale verbal response: Orientated SENSORIUM/ORIENTATION: Yes lethargic (mildly) SPEECH: speech normal GAIT: Yes Unable to assess gait MOTOR EXAM: Normal motor muscle tone present throughout Psych: COMMON NORMALS: cooperative and speech normal APPEARANCE: Yes unkempt ATTITUDE: Yes Other attitude/behavior findings present (Psych) (anxious) ACTIVITY/MOTOR BEHAVIOR: Yes appropriate eye contact SPEECH: Yes normal speech and Yes slow MOOD & AFFECT: Yes euthymic mood Course Vital Signs: Vital signs: Vital Signs Pulse Rate 90 01/17/23 04:16 Respiratory Rate 16 01/17/23 03:07 Blood Pressure 110/63 01/17/23 07:26 Pulse Oximetry 97 01/17/23 07:26 Oxygen Delivery Me thod Room Air 01/17/23 04:16 MDM - General Adult Medical Decision Making Patient was very anxious on exam initially. She was given 2 mg of IV Ativan was significant improvement. She is resting comfortably now in her bed. Her vital signs are stable. Blood pressure 109/74 saturation is 98% on room air, heart rate 90, respirations 14 as she is not suicidal or homicidal at this point, when she awakens, she will be allowed discharge. Discharge Plan Discharge Patient Disposition: Home Clinical Impression: Panic attack Condition: Stable Prescriptions: No Action haloperidol 5 mg Tablet 5 mg PO BEDTIME 30 Days Qty: 30 1RF haloperidol 1 mg tablet 2 mg PO QAM Qty: 60 1RF Discharge Orders: Discharge ED (Routine); Ordered 01/17/23 Ordered By: Jameel Bunch Discharge Diet: Advance as tolerated Discharge Activity: Resume usual activity Patient Instructions: Panic Attack (ED), Opioid Safety, Pain Management Activity Restrictions/Additional Instructions: Return for any thoughts or wishes to harm your self or anyone else. Coding Level of Care Code ED Hospice Clinical Marketer for Maikel Renae
[2023-01-17 07:26] VITALS: BP 110/63; O2SAT 97
== END 2023-01-17 07:27 | disposition home or self-care (01) ==
PROVIDERS: Emergency Provider Emergency Medicine
DX: F41.0 Panic disorder [episodic paroxysmal anxiety] (principal); F17.210 Nicotine dependence, cigarettes, uncomplicated
CPT/HCPCS: 96374; 99284; J2060

== ENCOUNTER 2023-07-02 16:54 | Inpatient (IN) | payer MEDICARE, MEDICAID, SELFPAY ==
[2023-07-02 16:55] VITALS: BMI 27.4
--- NOTE | 2023-07-02 17:01 | W.ED.OVERDOS ---
HPI - Overdose General: Chief Complaint: Overdose Stated Complaint: possible overdose Time Seen by Provider: 07/02/23 16:56 [facility] ED PFSH: Medical History (Updated 01/25/23 @ 00:15 by SAGE Henson) Psychotic disorder Social History Smoking and tobacco/nicotine status: current every day tobacco/nicotine user Discharge Plan Discharge Condition: Stable Prescriptions: No Action haloperidol 5 mg Tablet 5 mg PO BEDTIME 30 Days Qty: 30 1RF haloperidol 1 mg tablet 2 mg PO QAM Qty: 60 1RF Coding Level of Care Code ED Colored Leather Setter for Maikel Renae
[2023-07-02 17:03] VITALS: BP 108/54; PULSE 101; RESP 16; TEMP 37.1; O2SAT 98
--- NOTE | 2023-07-02 17:04 | ED_ITS ---
HPI - Overdose 2 General: Chief Complaint: Overdose Stated Complaint: possible overdose Time Seen by Provider: 07/02/23 16:56 Source: patient and police Mode of arrival: other Limitations: no limitations History of Present Illness: 33-year-old female who is here with debby ce. Patient had been incarcerated she was [facility] yesterday to a [facility] and today little over an hour ago she took roughly 45-50 Seroquel she believes she is not sure what the dose was. Patient denies being suicidal but history is difficult because she is quite lethargic here. She has had some nausea. Review of Systems 2 Const: Denies: fever(s), chills, body aches or change in appetite ENMT: Denies: throat pain or dental pain Card: Denies: chest pain Resp: Denies: dyspnea GI: Denies: abdominal pain, nausea, vomiting or diarrhea : Denies: dysuria Musc: Denies: neck pain or back pain Skin/Breast: Denies: rash Neuro: Denies: headache(s) Psych: Reports: depression PFSH ED 2 PFSH: Medical History Psychotic disorder Social History Smoking and tobacco/nicotine status: current every day tobacco/nicotine user Physical Exam 2 Const: COMMON NORMALS: patient oriented x3 and healthy appearing GENERAL APPEARANCE: lethargic ORIENTATION/CONSCIOUSNESS: Yes lethargic HENMT: COMMON NORMALS: normocephalic and atraumatic HEAD & SCALP: n ormocephalic and atraumatic Neck/C-Spine: COMMON NORMALS: full ROM and supple Chest: COMMONS NORMALS: normal inspection of the chest and normal palpation of entire chest wall Resp: COMMON NORMALS: normal respiratory effort, No retractions, No use of accessory muscles and clear to auscultation bilaterally AUSCULTATION: clear to auscultation bilaterally Cardio: COMMON NORMALS: regular rate, regular rhythm and No murmurs present (Cardio) RATE: regular rate RHYTHM: regular rhythm GI: COMMON NORMALS: Normal to inspection, nondistended, normoactive bowel sounds present, Soft to palpation, non-tender and no masses PALPATION: Yes Soft to palpation Extremity: COMMON NORMALS: normal to inspection and full ROM Neuro: COMMON NORMALS: patient oriented x3, moves all extremities and no focal motor deficits SENSORIUM/ORIENTATION: Yes lethargic Psych: COMMON NORMALS: mental status grossly normal and cooperative Skin: COMMON NORMALS: no rashes or lesions noted and no wounds GENERAL SKIN EXAM: no rashes or lesions noted Course 2 Vital Signs: Vital signs: Vital Signs Temperature 98.8 F 07/02/23 17:03 Pulse Rate 120 H 07/02/23 18:57 Respiratory Rate 22 H 07/02/23 18:57 Blood Pressure 94/69 07/02/23 18:57 Pulse Oximetry 100 07/02/23 18:57 Oxygen Delivery Me thod Room Air 07/02/23 17:03 MDM - Overdose Medical Decision Making Patient presents here with an overdose on Seroquel. Patient is quite lethargic here but is protecting her own airway will awaken and speak to. She is denying being suicidal here did place her on a 96-hour hold as she did take some any meds she may have been trying to get out of correction as well please have released her from their custody will admit to the ICU spoke to the hospitalist also spoke to psychiatrist and they are consulted. Medical Records I reviewed the patient's medical records. Lab Data I reviewed the patient's lab results. 07/02/23 17:23 07/02/23 17:23 Laboratory Results WBC 7.64 10^3/uL (3.29-11.43) 07/02/23 17: RBC 4.17 10^6/uL (3.85-5.65) 07/02/23 17: Hgb 13.00 g/dL (11.27-16.99) 07/02/23 17: Hct 38.5 % (36-47) 07/02/23 17: MCV 92.3 fl (85-98) 07/02/23 17: MCH 31.2 pg (27-33) 07/02/23 17: MCHC 33.8 g/dL (30-55) 07/02/23 17: RDW 11.9 % (12.1-15.1) L 07/02/23 17: Plt Count 208 10^3/cmm (157-399) 07/02/23 17: MPV 10.4 fL (7.4-10.4) 07/02/23 17: Neut % (Auto) 77.8 % 07/02/23 17: Lymph % (Auto) 15.4 % 07/02/23 17: [place] % (Auto) 5.5 % 07/02/23 17: Eos % (Auto) 0.7 % 07/02/23 17: Baso % (Auto) 0.3 % 07/02/23: Neut # (Auto) 5.95 10^3/uL (1.8-7.7) 07/02/23 17: Lymph # (Auto) 1.2 10^3/uL (0.8-4.8) 07/02/23: [place] # (Auto) 0.4 10^3/uL (0.2-0.9) 07/02/23: Eos # (Auto) 0.1 10^3/uL (0.0-0.8) 07/02/23: Baso # (Auto) 0.0 10^3/uL (0.0-0.1) 07/02/23 17: Nucleated RBC % (auto) 0 % 07/02/23 17: Nucleated RBCs # 0.0 /100WBC 07/02/23 17: Sodium 138 mmol/L (136-145) 07/02/23 17: Potassium 3.5 mmol/L (3.5-5.1) 07/02/23 17: Chloride 104 mmol/L (98-107) 07/02/23: Carbon Dioxide 22 mmol/L (22-29) 07/02/23 17: Anion Gap 15.5 (5-19) 07/02/23 17: BUN 7 mg/dL (6-20) 07/02/23 17: Creatinine 0.7 mg/dL (0.5-0.9) 07/02/23 17: GFR Calculation 95.2 mL/min (90-130) 07/02/23 17: Glucose 133 mg/dL (65-115) H 07/02/23 17: Calculated Osmolality 286 mOsm/kg (285-295) 07/02/23: Calcium 9.4 mg/dL (8.5-10.5) 12/21/23 17:23 Total Bilirubin 0.3 mg/dL (0.15-1.2) 07/02/23 17:23 AST 12 U/L (0-32) 07/02/23 17:23 ALT 8 U/L (0-33) 07/02/23 17:23 Alkaline Phosphatase 77 U/L (35-105) 07/02/23 17: Total Protein 7.0 g/dL (6.6-8.7) 07/02/23 17: Albumin 4.4 g/dL (3.5-5.2) 07/02/23 17:23 Globulin 2.6 g/dL (1.3-4.6) 07/02/23 17:23 Salicylates < 0.3 mg/dL (3-10) L 07/02/23 17:23 Acetaminophen < 5.0 ug/mL (10-30) L 07/02/23 17:23 Ethyl Alcohol < 10 mg/dL (0-10) 07/02/23 17:23 No radiology studies performed this visit EKG Data EKG 1: I personally reviewed and interpreted this EKG as follows: EKG interpretation date: 07/02/23 EKG interpretation time: 17:11 Interpretation: nsr hr [address] or t wave abnormalities qrs 82 qtc 412 Discharge Plan Discharge Patient Disposition: Admitted As Inpatient Admit Provider: Toi Munguia Clinical Impression: Drug overdose Condition: Stable Coding Level of Care Code ED Easement Man for Chg Batool
--- NOTE | 2023-07-02 17:11 | ECG_ITS ---
[facility] Test Date: 2023-07-02 Pat Name: Dioni Hudson Department: Room: Gender: Female Com Writer: : 1990 Requested By: Sid Lopez Order Number: [id number] Yaneth MD: Apolinar Paul M.D. Measurements Intervals [place] Rate: 99 P: 64 WI: 139 QRS: 83 QRSD: 82 T: 69 QT: 356 QTc: 458 Interpretive Statements SINUS RHYTHM No previous ECG available for comparison Electronically Signed On 07-03-2023 19:18:38 [employer] by Apolinar Paul M.D. [id number]
[2023-07-02 17:23] VITALS: BP 108/54; PULSE 110; RESP 15; O2SAT 100
[2023-07-02] MEDS: sodium chloride 0.9% 1,000 ML 999 ML IV ×2 (17:27→19:51)
[2023-07-02 17:44] LABS: Basophils % 0.3 %; Eosinophils # 0.1 10^3/uL (0.0-0.8); Eosinophils % 0.7 %; Hematocrit 38.5 % (36-47); Lymphocytes # 1.2 10^3/uL (0.8-4.8); Lymphocytes % 15.4 %; Mean Corpuscular HGB Conc 33.8 g/dL (30-55); Mean Corpuscular Hemoglobin 31.2 pg (27-33); Mean Corpuscular Volume 92.3 fl (85-98); Mean Platelet Volume 10.4 fL (7.4-10.4); Monocytes # 0.4 10^3/uL (0.2-0.9); Monocytes % 5.5 %; Neutrophils # 5.95 10^3/uL (1.8-7.7); Neutrophils % 77.8 %; Nucleated Red Blood Cells % 0 %; Platelet Count 208 10^3/cmm (157-399); Red Blood Count 4.17 10^6/uL (3.85-5.65); Red Cell Distribution Width 11.9 % (12.1-15.1); White Blood Count 7.64 10^3/uL (3.29-11.43)
[2023-07-02 17:51] VITALS: BP 108/54; PULSE 106; RESP 20; O2SAT 100
[2023-07-02 17:57] LABS: Alanine Aminotransferase 8 U/L (0-33); Albumin Level 4.4 g/dL (3.5-5.2); Alkaline Phosphatase 77 U/L (35-105); Anion Gap 15.5 (5-19); Aspartate Amino Transferase 12 U/L (0-32); Blood Urea Nitrogen 7 mg/dL (6-20); Calcium 9.4 mg/dL (8.5-10.5); Carbon Dioxide 22 mmol/L (22-29); Chloride 104 mmol/L (98-107); Globulin 2.6 g/dL (1.3-4.6); Glomerular Filtration Rate 95.2 mL/min (90-130); Glucose 133 mg/dL (65-115); Osmolality Calculated 286 mOsm/kg (285-295); Potassium 3.5 mmol/L (3.5-5.1); Sodium 138 mmol/L (136-145); Total Bilirubin 0.3 mg/dL (0.15-1.2)
[2023-07-02 17:58] LABS: Acetaminophen < 5.0 ug/mL (10-30); Alcohol Level < 10 mg/dL (0-10); Salicylate < 0.3 mg/dL (3-10)
--- NOTE | 2023-07-02 18:21 | PC.NURSE ---
96 hour hold rights reviewed and a copy given to patient and left at the bedside. Patient was released from police custody the same time rights were given.
[2023-07-02 18:57] VITALS: BP 94/69; PULSE 120; RESP 22; O2SAT 100
--- NOTE | 2023-07-02 19:17 | P.HP_ITS ---
Providers/Chief Complaint 2 Admitting Physician: Toi Munguia MD Chief Complaint: possible overdose History of Present Illness Dioni Hudson is a 33 year old female who was recently incarcerated recently got released, she was getting assistance from a homeless [facility], carries psychiatric history, today took 45 to 50 tablets of Seroquel a few hours before her arrival in the ER. Patient is extremely lethargic and fatigued at the time of evaluation, her heart rate is 150 I have requested another EKG on arrival she was in sinus rhythm with QTc around 458 She is verbally redirectable, opens eyes tries to answer question but goes back to her drowsy state She is saturating well on room air She will get another fluid bolus, requesting EKG, she will go to ICU D-dimer unremarkable for her tachycardia We will request drug screen Review of Systems 2 General: Reports: ROS unobtainable due to medical condition and ROS unobtainable due to mental status Medications/Allergies Home Medications Medication Instructions Recorded Confirmed Last Taken Type haloperidol 5 mg tablet 5 mg PO BEDTIME 30 days #30 tabs 01/15/23 Unknown Rx haloperidol 1 mg tablet 2 mg (2 x 1 mg) PO QAM #60 tabs 01/16/23 Unknown Rx Allergies Allergy/AdvReac Type Severity Reaction Status Date / Time No Known Allergies Allergy Verified 01/17/23 03:07 PFSH Acute 2 PFSH: Medical History Psychotic disorder Social History Smoking and tobacco/nicotine status: current every day tobacco/nicotine user Vitals/I&O/Wt Last Vital Signs Temp 98.8 F 07/02/23 17:03 Pulse 120 H 07/02/23 18:57 Resp 22 H 07/02/23 18:57 BP 94/69 07/02/23 18:57 Pulse Ox 100 07/02/23 18:57 O2 Del Method Room Air 07/02/23 17:03 Weight last 48 hrs Weight 74.843 kg Physical Exam 2 Narrative: Young female Drowsy but able to protect airway Verbally redirectable Pupils are symmetrical and reactive to light Currently on room air Tachycardia heart rate in the 150s MAP 65 mmHg Clinically looks dehydrated Lower extremity no swelling S1, S2 tachycardia Abdomen soft No audible stridor or wheezing Data 07/02/23 17:23 07/02/23 17:23 A&P Assessment and plan (1) Borderline personality disorder: (2) Methamphetamine use disorder, severe: (3) Drug overdose: Qualifiers: Encounter type: initial encounter (4) Tachycardia: Plan Drug overdose Patient will need psychiatric evaluation once cleared medically Currently she is hypotensive and tachycardic History of polysubstance abuse with methamphetamine, drug screen is pending She took Seroquel 45 to 50 tablets, Admit to ICU Patient is able to protect her airway, she is saturating well on room air We are getting another EKG, most likely patient is retaining urine I will request Lucas catheter overnight, rule out methamphetamine toxicity that can cause tachycardia as well Keep her n.p.o. start diet when she is more awake and alert Monitor QTc Will give her 1 g mag, check magnesium Full code From [facility] I will continue IV fluids clinically she looks dehydrated, will obtain chest x- ray to rule out aspiration pneumonitis Self interpretation of EKG, sinus rhythm, tachycardia Patient not able to provide history, most of the information taken from the collaterals Spoke with the ER physician, CBC, BMP unremarkable, beta-hCG, mag level requested, D-dimer unremarkable Review of records: Patient has history of borderline personality disorder, methamphetamine disorder, he was in neuro psychiatric unit for suicidal ideation Attestations 2 Medical Necessity Statement*: More than 2 midnights anticipated for drug overdose management Coding Level of Care Code Critical Care >/= 30 minutes Critical care time (in minutes): 45 The high probability of a clinically significant, sudden or life threatening deterioration, as referenced in this documentation, required my full and direct attention, intervention and personal management. The critical care time shown is in addition to time spent performing any reported separately billable procedures and includes the following: [x] Data and vital sign review and interpretation [x ] Patient assessment, examination and intervention [x] Medication orders and management [x] Patient/Family updates as able [x] Care Coordination and Documentation. Diagnoses Borderline personality disorder F60.3 Methamphetamine use disorder, severe F15.20 Drug overdose T50.901A Encounter type: initial encounter Tachycardia R00.0
[2023-07-02 19:48] LABS: D Dimer 0.32 ug/mLFEU (0-0.59)
--- NOTE | 2023-07-02 19:55 | XRR_ITS ---
PROCEDURE INFORMATION: Exam: XR Chest Exam date and time: 07/02/2023 9:58 PM Age: 33 years old Clinical indication: Other: Pne; Additional info: Pneumonia TECHNIQUE: Imaging protocol: Radiologic exam of the chest. Views: 1 view. COMPARISON: No relevant prior studies available. FINDINGS: Lungs: Unremarkable. No consolidation. Pleural spaces: Unremarkable. No pleural effusion. No pneumothorax. Heart/Mediastinum: Unremarkable. No cardiomegaly. Bones/joints: Unremarkable. XR/XR chest 1V portable [id number] IMPRESSION: No acute findings.
--- NOTE | 2023-07-02 20:00 | PC.NURSE ---
received patient from ER via [facility] with operations staff specialist security patient became agitated when attempts made to expediter clerk her over from gurney to bed patient screaming an cussing with some noted incoherent words patient fell right to sleep once placed on the bed
[2023-07-02 20:48] LABS: Troponin(5th) Baseline < 6 ng/L (0-10)
[2023-07-02] MEDS: sodium chloride 0.9% 1,000 ML 1000 ML IV (20:55)
[2023-07-02] MEDS: dextrose 5%-sod chloride 0.9% 1,000 ML 75 ML IV (20:59)
[2023-07-02] MEDS: enoxaparin 40 mg/0.4 mL Syringe SUBCUT (21:01)
[2023-07-02 21:25] LABS: Magnesium 1.8 mg/dL (1.7-2.3); Thyroid Stimulating Hormone 1.21 uIU/mL (0.27-4.20)
--- NOTE | 2023-07-02 22:10 | PC.NURSE ---
attempt to have patient void patient screaming and yelling at us not to touch her she did get out of bed to BSC and did sit for some time with out success attempted to place pace patients anatomy did not allow for placement bladder sca performed and 450 in bladder provider notified of issues and instructions to try again
[2023-07-02 22:49] LABS: Troponin 5 2HR Delta 0.00001 ABS# (0-10)
--- NOTE | 2023-07-03 01:12 | PC.NURSE ---
patient sitting up in bed this nurse went in to help and patient mumbled that she wants something and i was not able to understand her when asked again what she was saying she proceeded to yell and scream cuss words at me that she needed to use the bathroom this nurse walked around the bed to let the bed rail down to assist patient to bsc and she continued to yell and scream at me i then told her that i would come back to help her when she had calmed down she then screamed out the door NOW IM IN THE SAME POSITION IS WAS IN WHEN YOU CAME IN WHAT WAS THE POINT this nurse turned around at the same time patient was trying to get out of bed reached out to stabilize the patient and she became very agitated by the touch help from other nurses to assist patient to the bathroom patient was able to void at this time as she continued to scream and yell while she was on the toilet patient standby assited back to bed where she was able to be verbally deescalate patient she was provided with a sandwich and water patient eventually calmed and laid back down with out further event
[2023-07-03 02:18] LABS: Troponin 5 6HR Delta 0.00001 ng/L (0-12)
[2023-07-03 02:19] LABS: Anion Gap 12.1 (5-19); Blood Urea Nitrogen 6 mg/dL (6-20); Calcium 8.9 mg/dL (8.5-10.5); Carbon Dioxide 23 mmol/L (22-29); Chloride 112 mmol/L (98-107); Creatinine Clr Calc Pharmacy 145.5122; Glomerular Filtration Rate 140.4 mL/min (90-130); Glucose 151 mg/dL (65-115); Magnesium 1.8 mg/dL (1.7-2.3); Osmolality Calculated 297 mOsm/kg (285-295); Potassium 4.1 mmol/L (3.5-5.1); Sodium 143 mmol/L (136-145)
--- NOTE | 2023-07-03 06:04 | PC.NURSE ---
patient awake at this time continues verbally abuse nursing staff asking for water when patient was handed water she pushed it back at the nurse this nurse told her she would not be able to have any water if we was going o be treated this way patient started yealling at staff IM NOT GOING TO FUCKING BEG FOR 5 OR 6 HOURS FOR FUCKING WATER YOU ARE ALL FUCKING STUPID AND YOU WILL NEVER WORK AGAIN this nurse explained that she could not have water until she calmed down patient then stated I HOPE YOU OF DEHYDRATION another nurse explained to the patient that she was offered water and she pushed it back at the nurse patient then stated YOU ARE A FUCKING LIER SHUT THE FUCK UP YOU STUPID COW I WANT TO TALK TO THE AIX ADMINISTRATOR this nurse explained that the case management coordinator was not her that is was 6 am and they would not be here until 8. patient did calm and layed back down
--- NOTE | 2023-07-03 06:31 | PC.NURSE ---
patient did get up to go to the bathroom after yelling at the nurses and climbing up in the chair and strarted to pull her pants down and squat hat was placed in toilet for collection of urine we did not collect anything patient stated yeah i avoided that when she over heard the nurses talking about if we got the sample or not hat was pushed all the way back to of the toilet
[2023-07-03 10:19] VITALS: PULSE 111; RESP 16; O2SAT 95
--- NOTE | 2023-07-03 10:36 | PC.NURSE ---
This nurse consulted Poison control, advised to monitor QT interval, HCP notified
--- NOTE | 2023-07-03 10:42 | PC.NURSE ---
Patient refusing care, not cooperating with staff. yelling and cussing when speaking with staff
[2023-07-03] MEDS: haloperidol inj 5 mg/mL INJ 1 mL 2 MG IM (12:13)
--- NOTE | 2023-07-03 12:14 | PC.NURSE ---
Dr. Munguia went into room to speak with patient about refusing care, refusing EKG, patient yelled cussed and threw tv remote and cup at Dr. Munguia. Code 10 called. meds per MAR
--- NOTE | 2023-07-03 12:46 | PC.SOCIAL ---
IMM Update pg 2 of IMM updated and reviewed w/ patient. Copy provided and copy dated, initialed and placed in chart.
[2023-07-03] MEDS: OLANZapine 10 mg VIAL IM (13:55)
--- NOTE | 2023-07-03 13:55 | PC.NURSE ---
Patient keeps leaving room yelling and at staff, going through bathroom into other patient's room not cooperating with staff, took clothes off attempting to go into other rooms naked, threatening staff. PRN Zyprexa administered per MAR
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
--- NOTE | 2023-07-03 15:04 | PC.NURSE ---
patient transferred off unit at this time
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
--- NOTE | 2023-07-03 17:50 | PC.NURSE ---
Patient refused 1800 haldol 2mg po dose. She rolled her eyes at the RN and stated, I'm not taking this. These are the wrong fucking meds. Patient then stormed off to her room.
[2023-07-03 21:27] VITALS: RESP 18
[2023-07-04 06:00] VITALS: RESP 16; BMI 22.4
--- NOTE | 2023-07-04 12:10 | P.NPUPN_ITS ---
Subjective NPU 2 Subjective: Patient presented today reporting that she is fine. Then she reported being not good and reporting that it was our fault. She reports that when she was here last time nobody helped her and she reports that she left and things just got worse. She endorses that at that time she was not ready to go. We talked about individuals perception about readiness for discharge not always being the same as the treatment team. She was telling very confusing stories and getting angry when this health technical writer would try to get clarification. Ultimately she went to a sober living facility but reports it was overwhelming so that she was coming here but the tooth was she was going back to longterm and did not do well there so she was reportedly on her way back to longterm and somehow took an overdose of Seroquel. We discussed that the story was very confusing and she does not know whether she is welcome back at the rehab or not. She is unclear if she is mandated to return to longterm or not. We agree we will use the next few days to figure this out. Mental Status Exam 2 MSE Comments: This is a slender, underweight, white female, in hospital scrubs, with limited grooming and eye contact. No abnormal movements, except for psychomotor retardation intermixed with psychomotor agitation. Cooperative with exam in mild to moderate distress. Speech was decreased rate and volume and then increased rate and volume when angry. Mood described as frustrated; affect congruent. Thought process, organized. Thought content: patient denied any suicidal or homicidal ideation, there were no delusions reported or noted, patient denied any auditory or visual hallucinations. Attention and concentration were limited, and memory appeared mostly intact, but none were formally tested. Alert and oriented times three. Insight and judgment are impaired. Impulse control is impaired. Vitals/I&O/Wt Last Vital Signs Temp 98.8 F 07/02/23 17:03 Pulse 111 H 07/03/23 10:19 Resp 16 07/04/23 06:00 BP 94/69 07/02/23 18:57 Pulse Ox 95 07/03/23 10:19 O2 Del Method Room Air 07/03/23 15:24 Weight last 48 hrs Weight 61.235 kg Weight 61.235 kg Weight 61.235 kg Weight 74.843 kg Data NPU 07/02/23 17:23 07/03/23 01:50 A&P Assessment and plan (1) Impulse control disorder: (2) Borderline personality disorder: (3) Methamphetamine use disorder, severe: Plan This is a 33-year-old, white female, who presents with some history of psychiatric hospitalizations but limited follow-up treatment, with a willingness to start medication to help with depression. 1.continue current medications.. 2.Check labs and get consult. 3.Encourage individual, group, and milieu therapy. 4.Continue q-15-minute checks for safety. 5.Recommend sober living treatment at the highest level of care to which the patient is willing to commit. Involuntary Hold Information 2 96 Hour Hold: 96 Hour Involuntary Admission: No Attestations NPU 2 Medical Necessity Statement*: Inpatient hospitalization is medically necessary and deemed to be the clinically appropriate intervention at this time. Patient will be hospitalized for at least 2 midnights. Medications will be initiated and titrated accordingly as clinically indicated. The patient's likely length of stay is 3 to 5 days. Coding Level of Care Code Acute Code for [facility] Diagnoses Impulse control disorder F63.9 Borderline personality disorder F60.3 Methamphetamine use disorder, severe F15.20
[2023-07-04] MEDS: nicotine 21 mg Patch 1 PATCH TRANSDERMA (12:59)
--- NOTE | 2023-07-04 12:59 | PC.NURSE ---
Patient very agitated and refusing medication this morning. She became very argumentative with the doctor during his assessment and this RN overheard her call him a dumbfuck. She then went to the nurses' station and requested lunch and a nicotine patch, both of which were given. She did thank the nursing staff.
[2023-07-04 14:00] VITALS: RESP 15
--- NOTE | 2023-07-04 14:37 | PC.NURSE ---
PT REFUSED 1400 VITALS, RESP WERE OBTAINED AT 15. WILL CONTINUE TO MONITOR.
--- NOTE | 2023-07-04 18:24 | PC.NURSE ---
Patient refused haldol 2mg po evening dose.
[2023-07-04 20:00] VITALS: BP 105/69; PULSE 99; RESP 18; TEMP 36.9; O2SAT 98
[2023-07-04] MEDS: docusate sodium 100 mg Capsule PO (21:13)
[2023-07-04 21:39] LABS: HCG Qualitative Urine. Negative (Negative)
[2023-07-05 06:00] VITALS: BP 102/60; PULSE 96; RESP 17; TEMP 36.4; O2SAT 97
[2023-07-05] MEDS: thiamine 100 mg Tablet PO (08:17)
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
--- NOTE | 2023-07-05 11:48 | P.NPUPN_ITS ---
Subjective NPU 2 Subjective: Patient presented today reporting that she is doing okay. She reports she does not remember our interaction from yesterday but knows I will think it went well and I want a fresh start. We talked about her not feeling like she does well on Haldol and blaming the Haldol for how she reacted that led her to going to prison. We discussed discontinuing the Haldol and starting Seroquel the risks, benefits and alternatives and she understood and agreed to proceed as documented in this note. Mental Status Exam 2 MSE Comments: This is a slender, underweight, white female, in hospital scrubs, with improving grooming and eye contact. No abnormal movements, except for psychomotor retardation. Cooperative with exam in mild distress. Speech was decreased rate and volume. Mood described as better; affect congruent. Thought process, organized. Thought content: patient denied any suicidal or homicidal ideation, there were no delusions reported or noted, patient denied any auditory or visual hallucinations. Attention and concentration were limited, and memory appeared mostly intact, but none were formally tested. Alert and oriented times three. Insight and judgment are impaired. Impulse control is impaired. Vitals/I&O/Wt Last Vital Signs Temp 97.6 F 07/05/23 06:00 Pulse 96 07/05/23 06:00 Resp 17 07/05/23 06:00 BP 102/60 07/05/23 06:00 Pulse Ox 97 07/05/23 06:00 O2 Del Method Room Air 07/05/23 06:00 Weight last 48 hrs Weight 58.967 kg Weight 61.235 kg Weight 61.235 kg Data NPU 07/02/23 17:23 07/03/23 01:50 A&P Assessment and plan (1) Impulse control disorder: (2) Borderline personality disorder: (3) Methamphetamine use disorder, severe: Plan This is a 33-year-old, white female, who presents with some history of psychiatric hospitalizations but limited follow-up treatment, with a willingness to start medication to help with depression. 1.continue current medications. 2.discontinue Haldol and start Seroquel 100 mg p.o. nightly 3.Encourage individual, group, and milieu therapy. 4.Continue q-15-minute checks for safety. 5.Recommend sober living treatment at the highest level of care to which the patient is willing to commit. Involuntary Hold Information 2 96 Hour Hold: 96 Hour Involuntary Admission: No Attestations NPU 2 Medical Necessity Statement*: Inpatient hospitalization is medically necessary and deemed to be the clinically appropriate intervention at this time. Patient will be hospitalized for at least 2 midnights. Medications will be initiated and titrated accordingly as clinically indicated. The patient's likely length of stay is 2-4 days. Coding Level of Care Code Acute Code for [facility] Diagnoses Impulse control disorder F63.9 Borderline personality disorder F60.3 Methamphetamine use disorder, severe F15.20
[2023-07-05] MEDS: nicotine 4 mg lozenge MUCOUS MEM ×3 (13:20→20:04)
[2023-07-05 14:00] VITALS: BP 127/83; PULSE 92; RESP 14; TEMP 36.9; O2SAT 97
[2023-07-05 19:42] VITALS: BP 128/79; PULSE 82; RESP 16; TEMP 36.8; O2SAT 98
--- NOTE | 2023-07-05 19:54 | PC.NURSE ---
Patient Behavior Patient on the phone and getting worked up. Encouraged to remain calm.
[2023-07-05] MEDS: quetiapine 100 mg Tablet PO (20:04)
[2023-07-05] MEDS: OLANZapine 5 mg ODT PO (20:08)
[2023-07-06 06:00] VITALS: BP 112/78; PULSE 87; RESP 15; TEMP 36.6; O2SAT 98; BMI 21.6
[2023-07-06 07:26] LABS: Amphetamines Screen Urine Negative (Negative); Barbiturates Screen Urine Negative (Negative); Benzodiazepines Screen Urine Negative (Negative); Cocaine Screen Urine Negative (Negative); Opiate Screen Urine Negative (Negative); PCP Screen Urine Negative (Negative); THC Screen Urine Negative (Negative)
[2023-07-06] MEDS: nicotine 21 mg Patch 1 PATCH TRANSDERMA (07:32)
[2023-07-06] MEDS: thiamine 100 mg Tablet PO (07:33)
[2023-07-06] MEDS: OLANZapine 5 mg ODT PO (08:08)
[2023-07-06] MEDS: diphenhydrAMINE 25 mg Capsule 50 MG PO (08:32)
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
--- NOTE | 2023-07-06 09:19 | P.NPUPN_ITS ---
Subjective NPU 2 Subjective: Patient presented today reporting that things are going okay. We discussed the fact that the treatment team will be back tomorrow and we could explore whether she had an opportunity to return to the sober living facility or if she needed to consider returning to [facility] and what her responsibilities are with their release. She denied any problems with the change to Seroquel and we discussed ultimately increasing the dose with some daytime doses. Mental Status Exam 2 MSE Comments: This is a slender, underweight, white female, in hospital scrubs, with improving grooming and eye contact. No abnormal movements, except for psychomotor retardation. Cooperative with exam in mild distress. Speech was decreased rate and volume. Mood described as better; affect congruent. Thought process, organized. Thought content: patient denied any suicidal or homicidal ideation, there were no delusions reported or noted, patient denied any auditory or visual hallucinations. Attention and concentration were limited, and memory appeared mostly intact, but none were formally tested. Alert and oriented times three. Insight and judgment are impaired. Impulse control is impaired. Vitals/I&O/Wt Last Vital Signs Temp 97.9 F 07/06/23 06:00 Pulse 87 07/06/23 06:00 Resp 15 07/06/23 06:00 BP 112/78 07/06/23 06:00 Pulse Ox 98 07/06/23 06:00 O2 Del Method Room Air 07/06/23 06:00 Weight last 48 hrs Weight 58.967 kg Weight 58.967 kg Weight 61.235 kg Data NPU 07/02/23 17:23 07/03/23 01:50 A&P Assessment and plan (1) Impulse control disorder: (2) Borderline personality disorder: (3) Methamphetamine use disorder, severe: Plan This is a 33-year-old, white female, who presents with some history of psychiatric hospitalizations but limited follow-up treatment, with a willingness to start medication to help with depression. 1.continue current medications. 2.discontinued Haldol and started Seroquel 100 mg p.o. nightly 3.Encourage individual, group, and milieu therapy. 4.Continue q-15-minute checks for safety. 5.Recommend sober living treatment at the highest level of care to which the patient is willing to commit. Involuntary Hold Information 2 96 Hour Hold: 96 Hour Involuntary Admission: No Attestations NPU 2 Medical Necessity Statement*: Inpatient hospitalization is medically necessary and deemed to be the clinically appropriate intervention at this time. Medications will be initiated and titrated accordingly as clinically indicated. The patient's likely length of stay is 1-3 days. Coding Level of Care Code Acute Code for [facility] Fwd Diagnoses Impulse control disorder F63.9 Borderline personality disorder F60.3 Methamphetamine use disorder, severe F15.20
[2023-07-06 14:00] VITALS: BP 117/74; PULSE 99; RESP 20; TEMP 37; O2SAT 97
[2023-07-06 20:10] VITALS: BP 126/83; PULSE 102; RESP 18; TEMP 36.6; O2SAT 97
[2023-07-06] MEDS: quetiapine 100 mg Tablet 150 MG PO (21:23)
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
--- NOTE | 2023-07-07 05:14 | PC.NURSE ---
PT HAS SLEPT THROUGHOUT THE SHIFT, SLEEPING APPROXIMATELY 9 HOURS. SEROQUEL 150 MG DEEMED EFFECTIVE. P0T CONTINUES TO REST.
[2023-07-07 06:00] VITALS: RESP 16
--- NOTE | 2023-07-07 08:01 | PC.NURSE ---
Patient very pleasant this morning. Denies avh and si/hi. She denies any depression, but does endorse some anxiety due to the uncertainty of the future.
[2023-07-07] MEDS: thiamine 100 mg Tablet PO (08:08)
[2023-07-07] MEDS: nicotine 21 mg Patch 1 PATCH TRANSDERMA (08:08)
[2023-07-07] MEDS: quetiapine 25 mg Tablet 50 MG PO (08:08)
[2023-07-07] MEDS: OLANZapine 5 mg ODT PO (09:24)
[2023-07-07] MEDS: guaiFENesin 600 mg Tablet PO ×2 (10:18→20:41)
[2023-07-07] MEDS: fluticasone nasal spray 16gm Btl 1 SPRAY NASAL ×2 (10:18→20:40)
[2023-07-07 14:00] VITALS: RESP 16
[2023-07-07] MEDS: haloperidol inj 5 mg/mL INJ 1 mL 10 MG IM (14:15)
[2023-07-07] MEDS: diphenhydrAMINE 50 mg/mL SDV 1mL IM (14:15)
[2023-07-07] MEDS: benztropine 1 mg Tablet PO (14:26)
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
--- NOTE | 2023-07-07 14:54 | PC.NURSE ---
Patient no longer exhibiting violent behaviors and has been successfully redirected. Seclusion discontinued at 1450. Patient is now watching tv in the dayroom, calmly.
--- NOTE | 2023-07-07 18:48 | P.NPUPN_ITS ---
Subjective NPU 2 Subjective: Patient presented today reporting that things are going crappy. She was upset that she is not going to be discharged today. We discussed the fact that getting put in seclusion is not the first step towards discharge. She denied any problems with the change to Seroquel and we discussed ultimately increasing the dose with some daytime doses if she would be open to it. Mental Status Exam 2 MSE Comments: This is a slender, underweight, white female, in hospital scrubs, with improving grooming and eye contact. No abnormal movements, except for psychomotor retardation. Cooperative with exam in mild to moderate distress. Speech was decreased rate and volume. Mood described as annoyed; affect congruent. Thought process, organized. Thought content: patient denied any suicidal or homicidal ideation, there were no delusions reported or noted, patient denied any auditory or visual hallucinations. Attention and concentration were limited, and memory appeared mostly intact, but none were formally tested. Alert and oriented times three. Insight and judgment are impaired. Impulse control is impaired. Vitals/I&O/Wt Last Vital Signs Temp 97.9 F 07/06/23 20:10 Pulse 102 H 07/06/23 20:10 Resp 18 07/07/23 20:01 BP 126/83 07/06/23 20:10 Pulse Ox 97 07/06/23 20:10 O2 Del Method Room Air 07/06/23 20:10 Data NPU 07/02/23 17:23 07/03/23 01:50 A&P Assessment and plan (1) Impulse control disorder: (2) Borderline personality disorder: (3) Methamphetamine use disorder, severe: Plan This is a 33-year-old, white female, who presents with some history of psychiatric hospitalizations but limited follow-up treatment, with a willingness to start medication to help with depression. 1.continue current medications. 2.discontinued Haldol and started Seroquel 100 mg p.o. nightly 3.Encourage individual, group, and milieu therapy. 4.Continue q-15-minute checks for safety. 5.Recommend sober living treatment at the highest level of care to which the patient is willing to commit. Involuntary Hold Information 2 96 Hour Hold: 96 Hour Involuntary Admission: No Attestations NPU 2 Medical Necessity Statement*: Inpatient hospitalization is medically necessary and deemed to be the clinically appropriate intervention at this time. Medications will be initiated and titrated accordingly as clinically indicated. The patient's likely length of stay is 1-3 days. Coding Level of Care Code Acute Code for g Fwd Diagnoses Impulse control disorder F63.9 Borderline personality disorder F60.3 Methamphetamine use disorder, severe F15.20
[2023-07-07 20:01] VITALS: RESP 18
[2023-07-07] MEDS: quetiapine 100 mg Tablet 150 MG PO (20:41)
[2023-07-08 06:00] VITALS: RESP 17
[2023-07-08] MEDS: guaiFENesin 600 mg Tablet PO (09:31)
[2023-07-08] MEDS: fluticasone nasal spray 16gm Btl 1 SPRAY NASAL (09:31)
[2023-07-08] MEDS: thiamine 100 mg Tablet PO (09:31)
[2023-07-08] MEDS: quetiapine 25 mg Tablet 50 MG PO (09:31)
[2023-07-08] MEDS: nicotine 21 mg Patch 1 PATCH TRANSDERMA (09:34)
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
[2023-07-08 14:24] VITALS: RESP 17
--- NOTE | 2023-07-08 14:54 | DCPLANNER ---
IMM was printed and given to patient and a copy was placed in pts file.
== END 2023-07-08 14:50 | disposition home or self-care (01) | DRG 881 ==
LOC: ER 17:08 → ICU 19:03 → NP 07-03 15:04
PROVIDERS: Internal Medicine; Admitting Provider Family Medicine; Emergency Provider Emergency Medicine; Visit Provider Family Medicine
DX: F32.9 Major depressive disorder, single episode, unspecified (principal); Z59.02 Unsheltered homelessness; F15.20 Other stimulant dependence, uncomplicated; R45.851 Suicidal ideations; F17.210 Nicotine dependence, cigarettes, uncomplicated; R00.0 Tachycardia, unspecified; F12.90 Cannabis use, unspecified, uncomplicated; F63.9 Impulse disorder, unspecified; F60.3 Borderline personality disorder; Z91.199 Patient's noncompliance with other medical treatment and regimen due to unspecified reason; Z81.3 Family history of other psychoactive substance abuse and dependence; Z91.52 Personal history of nonsuicidal self-harm; F10.21 Alcohol dependence, in remission; Z62.812 Personal history of neglect in childhood; Z62.810 Personal history of physical and sexual abuse in childhood; Z62.811 Personal history of psychological abuse in childhood; T43.592A Poisoning by other antipsychotics and neuroleptics, intentional self-harm, initial encounter; Y92.9 Unspecified place or not applicable
CPT/HCPCS: 36415; 71045; 80048; 80053; 80306; 80307; 81025; 83735; 84443; 84484; 85025; 85378; 86140; 93005; 96360; 96361; 96372; 97165; 99285; J1200; J1630; J1650; J2060; J3490; J7030; J7042

== ENCOUNTER 2023-09-10 13:02 | Emergency (ER) | payer MEDICARE, MEDICAID, SELFPAY ==
[2023-09-10 13:04] VITALS: BP 123/80; PULSE 103; RESP 12; TEMP 36.8; O2SAT 99; BMI 21.6
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
--- NOTE | 2023-09-10 13:24 | PC.PHAR ---
PT STATES STOPPED TAKING BUPROPION SR 100 DUE TO MAKING HER IRRITABLE.
== END 2023-09-10 13:51 | disposition home or self-care (01) ==
PROVIDERS: Emergency Provider Emergency Medicine
DX: F60.3 Borderline personality disorder (principal); F15.20 Other stimulant dependence, uncomplicated; Z72.0 Tobacco use
CPT/HCPCS: 99283